=== PATIENT | female | born 1935 | race Caucasian/White ===

== ENCOUNTER → 2016-09-18 | Outpatient (CLI) | payer OTHER, MEDICAID ==
[~2016-09-18] MED LIST: AMIO0.1T PO; AMOX500T2 PO; COUM2TAB22 PO; DILT180C74 PO; SIMV20TA2 PO; TYLE325T5 PO; VALS320T PO; hydrodiuril PO
--- NOTE | 2016-09-18 10:31 | REPMRS ---
Patient History The patient states she has not had a clinical breast exam in over a year. Patient is postmenopausal. Family history of colorectal cancer in sister at age 57. Took hormonal contraceptives for 2 years. Took unspecified hormones for 3 months. Digital Mammo Screening Bilat: September 18, 2016 - Exam #: [id number] Bilateral CC and MLO view(s) were taken. Technologist: Fartun Davison, Technologist Prior study comparison: September 13, 2015, bilateral digital mammo screening bilat performed at [facility]. September 11, 2014, bilateral digital mammo screening bilat performed at [facility]. September 08, 2013, bilateral bilat screen digital mammo, performed at [facility] ([facility]). FINDINGS: There are scattered fibroglandular densities. There has been no change in the appearance of the mammogram from the prior studies. There is a mild amount of scattered fibroglandular density which is fairly symmetric. There is no interval development of dominant mass, architectural distortion, or clustered microcalcification suggestive of malignancy. ASSESSMENT: BI-RADS/ACR category 1 mammogram. Negative. Recommendation Routine screening mammogram in 1 year (for women over age 40). This mammogram was interpreted with the aid of an FDA-approved computer-aided dectection system. Electronically Signed By: Alexis Corcoran MD 09/18/16 [id number]
== END ==
LOC: M RAD 09:51
PROVIDERS: ATTEND Nurse Practitioner Family
DX: Z12.31 Encounter for screening mammogram for malignant neoplasm of breast (principal); Z78.0 Asymptomatic menopausal state; Z80.0 Family history of malignant neoplasm of digestive organs; Z92.0 Personal history of contraception

== ENCOUNTER 2017-10-22 11:55 | Day surgery (SDC) | payer MEDICARE, MEDICAID ==
[2017-10-22 12:40] LABS: INR 1.39; PROTHROMBIN TIME 17.3 SECONDS (12.1-14.4)
[2017-10-22] MEDS: MUPIROCIN 2% OINT 22 GM TUBE As Ordered (12:40)
[2017-10-22] MEDS: VANCOMYCIN 1000 MG/20 ML VIAL (J3370) As Ordered (12:41)
[2017-10-22 13:13] LABS: BEDSIDE GLUCOSE 90 MG/DL (83-110)
[2017-10-22] MEDS ORDERED: LIDOCAINE 2% INJ 100 MG/5 ML SDV (FOR ANES.) As Ordered (13:44)
[2017-10-22] MEDS ORDERED: dexameTHASONE 4 MG/ML 1ML VIAL (J1100) As Ordered (13:44)
[2017-10-22] MEDS ORDERED: ONDANSETRON 4MG/2ML VIAL (J2405) As Ordered (13:44)
[2017-10-22] MEDS ORDERED: PROPOFOL 500 MG/50 ML VIAL As Ordered (13:45)
[2017-10-22] MEDS ORDERED: MIDAZOLAM INJ 2 MG/2 ML VIAL (J2250) As Ordered (13:45)
[2017-10-22] MEDS ORDERED: fentaNYL 100 MCG/2 ML INJECTION (J3010) As Ordered (13:45)
[2017-10-22] MEDS: ceFAZolin SOD 1 GM in D5W MINI-BAG PLUS 50 ML IV (14:02)
[2017-10-22] MEDS ORDERED: ePHEDrine SULFATE 25 MG/5 ML(5MG/ML) SYRINGE As Ordered ×2 (14:33→14:41)
[2017-10-22] MEDS: LIDOCAINE 1% SDV INJ 30 ML VIAL As Ordered (14:38)
[2017-10-22] MEDS: ISOVUE-300 61% 50ML VIAL (Q9967) As Ordered (14:40)
[2017-10-22] MEDS: LR 1,000 ML IV (16:30)
[2017-10-22] MEDS ORDERED: fentaNYL 100 MCG/2 ML INJECTION (J3010) IV (16:30)
[2017-10-22] MEDS ORDERED: ONDANSETRON 4MG/2ML VIAL (J2405) IV (16:30)
[2017-10-22] MEDS: WARFARIN SOD 2 MG TAB PO (18:06)
[2017-10-22] MEDS: ACETAMINOPHEN TAB 650MG DOSE (2X325MG) PO (18:06)
[2017-10-22] MEDS: CANDESARTAN 16 MG TABLET PO (21:04)
[2017-10-22] MEDS: OCUVITE 1 TAB PO (21:04)
[2017-10-22] MEDS: SIMVASTATIN 20 MG TAB PO (21:04)
[2017-10-22] MEDS: ASCORBIC ACID 250 MG TAB PO (21:04)
[2017-10-23] MEDS: LEVOTHYROXINE 25MCG TABLET (0.025MG) PO (05:58)
[2017-10-23] MEDS: ATENOLOL 50 MG TAB PO ×2 (09:00→12:43)
[2017-10-23] MEDS: OCUVITE 1 TAB PO (10:01)
[2017-10-23] MEDS: SPIRONOLACTONE 12.5MG PER 1/2 TABLET PO (10:02)
[2017-10-23] MEDS: DIGOXIN 0.125 MG TAB PO (10:02)
[2017-10-23] MEDS: MULTIVITAMINS/MINERALS THERAP 1 TAB PO (10:02)
[2017-10-23] MEDS: metFORMIN XR 500MG TAB *GLUCOPHAGE XR PO (10:02)
[2017-10-23] MEDS: ASCORBIC ACID 250 MG TAB PO (10:03)
== END 2017-10-23 13:57 | disposition home or self-care (01) ==
LOC: M SDC 10-23 13:57 → M PCU 17:41
DX: I49.5 Sick sinus syndrome (principal); I48.91 Unspecified atrial fibrillation; Z79.899 Other long term (current) drug therapy; I10 Essential (primary) hypertension; E78.5 Hyperlipidemia, unspecified; E03.9 Hypothyroidism, unspecified
CPT/HCPCS: 33207